=== PATIENT | male | born 1980 | race Caucasian/White ===

== ENCOUNTER → 2016-08-15 | Outpatient (CLI) | payer BC ==
--- NOTE | 2016-08-15 17:05 | KCIC ---
PROCEDURE MRI lumbar spine without contrast. HISTORY Acute right-sided low back pain with sciatica, pain in the right buttock and thigh for 3 months TECHNIQUE Multiplanar, multi sequential non contrast MR imaging was performed of the lumbar spine. COMPARISON None FINDINGS Lumbar vertebral body stature and AP alignment are maintained. There is moderate to severe degenerative disc disease L5-S1, minimally at L4-5. Conus terminates at T12-L1. There is no significant marrow edema. L3-4: Neural foramina and spinal canal are adequate. L4-5: There is a shallow bulge/protrusion more eccentric to the right lateral recess, mild indentation upon the ventral thecal sac and near descending right L5 nerve root. There is very mild right lateral recess stenosis. Neural foramina are adequate. L5-S1: There is a very shallow bulge somewhat greater in the right lateral recess without significant impingement of the descending right S1 nerve root. Spinal canal is overall adequate. Neural foramina are adequate. IMPRESSION There is a shallow bulge/protrusion eccentric to the right lateral recess at L4-5, mild right lateral recess stenosis. There is moderate to severe degenerative disc disease at L5-S1, minimally at L4-5. Electronically signed by: Thuan Gaming MD (Aug 15, 2016 17:04:10)
== END | disposition home or self-care (01) ==
LOC: KCIC MRI 15:51
PROVIDERS: ATTEND Physician Assistant Medical
DX: M54.41 Lumbago with sciatica, right side (principal)
CPT/HCPCS: 72148